=== PATIENT | male | born 1965 | race African-American/Black ===

== ENCOUNTER 2017-03-13 09:28 | Emergency (ER) | payer BC, MEDICAID ==
[~2017-03-13] VITALS: Ht 175.3 cm; Wt 105.9 kg
[2017-03-13 12:01] VITALS: BP 123/66
== END 2017-03-13 13:03 | disposition home or self-care (01) ==
LOC: ER 09:29
DX: G62.9 Polyneuropathy, unspecified (principal); E11.9 Type 2 diabetes mellitus without complications
CPT/HCPCS: 99282

== ENCOUNTER 2017-05-28 06:35 | Emergency (ER) | payer OTHER, MEDICAID ==
[~2017-05-28] VITALS: Ht 172.7 cm; Wt 110.0 kg
[2017-05-28] MEDS ORDERED: ATOR20TA65 PO (07:00)
[2017-05-28] MEDS ORDERED: GABA-531 PO (07:00)
[2017-05-28] MEDS ORDERED: LOSA50TA20 PO (07:00)
[2017-05-28] MEDS ORDERED: AMLO5TAB4 PO (07:00)
[2017-05-28] MEDS ORDERED: SITA1TAB6 PO (07:00)
[2017-05-28 10:04] VITALS: BP 145/95
== END 2017-05-28 11:27 | disposition home or self-care (01) ==
LOC: ER 08:18
DX: E11.40 Type 2 diabetes mellitus with diabetic neuropathy, unspecified (principal); I10 Essential (primary) hypertension
CPT/HCPCS: 99281; Z7610